=== PATIENT | male | born 1955 | race Caucasian/White ===

== ENCOUNTER → 2017-07-09 | Outpatient (CLI) | payer OTHER ==
--- NOTE | 2017-07-09 14:01 | DIAGNOSTIC IMAGING REPORT ---
RIGHT ANKLE 3 VIEWS HISTORY: Right ankle injury with pain. ANKLE SPRAIN COMPARISON: None. FINDINGS: Small nondisplaced acute fracture at the distal tip of the fibula. Additional well-corticated ossific densities at the lateral malleolus are consistent with old avulsion fractures. No dislocation. Diffuse soft tissue swelling. No radiopaque foreign bodies. IMPRESSION: Small nondisplaced acute fracture at the distal tip of the fibula. Electronically signed by: Carlos A Han M.D. 07/09/2017 2:00 PM Dictated Date/Time: 07/09/2017 1:59 PM
== END | disposition home or self-care (01) ==
LOC: C.RAD1850 13:40
PROVIDERS: ATTEND Student in an Organized Health Care Education/Training Program
DX: S93.401A Sprain of unspecified ligament of right ankle, initial encounter (principal); X58.XXXA Exposure to other specified factors, initial encounter

== ENCOUNTER 2024-07-08 09:46 | Inpatient (IN) ==
--- NOTE | 2024-07-08 10:17 | Emergency Department Note ---
Impression & Plan Bradycardia, Heart block, Leukocytosis, Elevated troponin, Dizziness ED Provider Note NAME: AVNI ALFONSO AGE: 68 SEX: M : 1955 ARRIVES VIA: Walk-In INFORMANT: [Patient] ED PROVIDER(S): [Reyes Garcia MD] CHIEF COMPLAINT: Bradycardia HISTORY OF PRESENT ILLNESS: The patient is a 68-year-old male who states that 2 days ago, he felt woozy and like he may faint. He has had the symptoms come and go since and then, this morning, had an episode where his heart rate was recorded in the 30s. He did not have chest pain, he was not short of breath. He has not had fever, chills, cough or cold. The patient states that he is not on any medications that would lower his heart rate. He does have a history of a bundle branch block that he had evaluated by cardiology but nothing was felt of concern and he has not seen cardiology since. PMHx/PSHx/Social Hx: See Below PHYSICAL EXAM: GENERAL: Patient is in no acute distress. HEENT: No acute trauma, normocephalic atraumatic, mucous membranes moist, no nasal congestion. NECK: No stridor, no adenopathy, no meningismus, trachea is midline. LUNGS: Clear to auscultation bilaterally, no wheeze, no rhonchi, breath sounds equal. HEART: Bradycardic and somewhat irregular rhythm. No murmurs. ABDOMEN: Soft, nontender, no peritonitis. EXTREMITIES: No cyanosis, full range of motion of all the joints without pain or difficulty. NEUROLOGIC: Oriented x 3, no acute motor or sensory deficits, no focal weakness. SKIN: No jaundice, no diaphoresis. DIFFERENTIAL DIAGNOSIS: Dysrhythmia, heart block, Lyme disease, electrolyte imbalance, AL, among others. EMERGENCY DEPARTMENT PROCEDURES: MEDICAL DECISION MAKING: There is a mild leukocytosis, this could be consistent with infection or the stress of his presentation. There is a normal hemoglobin and platelet count. Creatinine is elevated and above his typical baseline. There was no electrolyte abnormality in need of emergent correction. No concerning liver enzyme elevation. Patient appeared to be in a euthyroid state. Troponin was somewhat elevated consistent with potential cardiac injury versus mismatch from his bradycardia. Chest x-ray does not show pneumonia or CHF. Urinalysis does not show infection. COVID, influenza and RSV test were negative. Lyme disease testing was negative. On exam, the patient seemed to be fairly comfortable, he was not in distress, but, his heart rate was quite low in the 30s. He was in a third-degree heart block. I did call and speak with cardiology. The patient was seen by cardiology here in the ED. The patient was placed on a dopamine drip to see if this would help with the bradycardia. Given his findings, he is to be hospitalized for pacemaker placement. I did speak with the patient and case management, the on-call hospitalist was consulted. Prior/Outside records/notes reviewed: None ECG per my interpretation: Indication was bradycardia. The ECG shows what appears to be of third-degree heart block with a rate of 36. There is a right bundle branch block. There are inverted T waves seen in the anterior leads. There is no ST elevation. No PVCs. The QTc is 408. No old ECGs to use for comparison. Repeat ECG per my interpretation: Indication was bradycardia. The ECG shows what appears to be a sinus rhythm with a very short HI. The rate is 65. There is a left bundle branch block. There is no acute ST elevation, no PVCs. The QTc was 567. Compared to the earlier ECG, the rate has increased and the third- degree block is no longer present. Continuous Cardiac Monitoring per my interpretation: An order was placed for continuous cardiac monitoring. The monitor shows a rate of 35 with third-degree heart block. Imaging/x-ray results per my interpretation: Chest x-ray does not show CHF, pneumonia or significant cardiomegaly. Chronic Medical/Social conditions affecting care: Hypertension Care/Management discussed with: Cardiology-Dr. Sibley. Case management and the on-call hospitalist. Level of care consideration(s): After review of the information above and other included data: --I believe the patient requires escalation of care to admission Critical Care Note: I have personally spent 41 minutes of critical care time in the direct management of this patient. This includes bedside care, interpretation of diagnostic studies, and testing, discussion with consultants, patient, and family members, and other required patient management activities. This 41 minutes is in excess of all separately billable procedures. DISPOSITION: Admission Past Med/Surg History Problem List Dizziness (Acute) Elevated troponin (Acute) Leukocytosis (Acute) Heart block (Acute) Bradycardia (Acute) Systolic murmur Complete heart block Scrotal pain Renal cyst Renal mass Carotid bruit Chronic kidney disease Vitamin D deficiency HTN (hypertension) (Chronic) History of tonsillectomy (Acute) Anterior dislocation of left humerus (Acute) Anterior dislocation of left humerus (Acute) Fall (Acute) Fracture of head of left humerus (Acute) Multiple contusions (Acute) Medical History Stenosis of right carotid artery greater than 50% Weight disorder Testicle pain (04/15/23) Testicle pain Snoring Seborrheic keratosis Seasonal allergies Right shoulder pain (03/14/23) Right inguinal hernia (06/25/23) Right inguinal hernia Pulmonary artery hypertension Postural dizziness (04/01/23) Pain in the abdomen (06/25/23) Need for pneumococcal vaccination Medicare annual wellness visit, subsequent LVH (left ventricular hypertrophy) Iritis, secondary infectious Impaired fasting glucose Impacted cerumen of right ear (03/14/23) Hyponatremia Hyperlipidemia (06/25/23) Hyperlipidemia History of shingles History of retinal tear History of prior cigarette smoking History of gout History of COVID-19 (11/16/21) History of adenomatous polyp of colon (12/31/17) Hearing loss Hamstring tightness of both lower extremities Groin pain, chronic, right (05/08/23) Family history of colon cancer Elevated WBC count Elbow pain, right Dizziness (04/15/23) Dizziness Coronary artery calcification Claudication of right lower extremity Carotid artery stenosis BPPV (benign paroxysmal positional vertigo) (05/08/23) Body mass index [BMI] 26.0-26.9, adult (03/14/23) Body mass index [BMI] 26.0-26.9, adult (06/25/23) Body mass index [BMI] 25.0-25.9, adult (04/01/23) Bilateral inguinal hernia Benign paroxysmal vertigo, bilateral Back pain (06/25/23) Age-related hearing loss Abnormal CT of the abdomen (07/18/23) White coat syndrome with diagnosis of hypertension Left bundle branch block Gout Family History Father Kidney disease Hypertension Mother Diabetes Colorectal cancer Social History Smoking Status: Former smoker Age Started Using Tobacco: 15; Age Quit Using Tobacco: 24; Do You Dip or Chew Tobacco: No; Hx Alcohol Use: No Hx Substance Use: No Preferred Language: Croatian Communication Ability: Effective Visual Impairment: Limited Hearing Ability: Normal Entry Level Account Executive Required: No Beliefs That Will Affect Care: None marital status: Current Living Situation: Spouse current occupational status: retired current occupation: Former [employer] How many Children do You have: 4 Other Information That Helps Us Care for You: No Feels Safe at Home: Yes Safety Concerns: Feels Safe At This Time Diet: other and regular Diet Comment: intermittent fasting caffeine: Yes (pepsi x 1-2 daily) Dental Care, Regularly: Yes Physical Activity Frequency: 1-2 Times per Week Seatbelt Use: always Sunscreen Use: Yes Do you think of yourself as: straight/heterosexual Gender Identity: Male Assistive Devices: Glasses Allergies Allergies Allergy/AdvReac Type Severity Reaction Status Date / Time bee venom protein (honey bee) Allergy Intermediate Hives Unverified 07/08/24 11:07 shellfish derived Allergy Intermediate Facial Unverified 07/08/24 11:07 Swelling cat dander Allergy WATERY EYES Verified 07/08/24 11:07 Home Meds Home Medications Medication Instructions Recorded Confirmed allopurinol 300 mg tablet 300 mg PO DAILY 05/07/19 07/08/24 amlodipine 2.5 mg tablet 2.5 mg PO DAILY 05/07/19 07/08/24 irbesartan 300 mg tablet 300 mg PO DAILY 05/07/19 07/08/24 aspirin 81 mg tablet,delayed 81 mg PO DAILY 08/23/19 07/08/24 release (Adult Aspirin Regimen) chlorthalidone 25 mg tablet 25 mg PO Q OTHER DAY 08/23/19 07/08/24 rosuvastatin 20 mg tablet 20 mg PO DAILY 02/19/22 07/08/24 coenzyme Q10 100 mg capsule 100 mg PO DAILY 11/07/23 07/08/24 (CoQ-10) multivitamin 1 tab PO DAILY 07/08/24 07/08/24 Results & Data (ED) Vital Signs Vital Signs - 24 hr 07/08/24 09:49 07/08/24 10:00 07/08/24 10:02 Temperature 36.4 C L Temperature Source Temporal Artery Scan Pulse Rate 60 34 L Pulse Rate [Apical] Pulse Rate from SpO2 Sensor Respiratory Rate 14 Blood Pressure 217/81 H 231/87 H Blood Pressure [Left Arm] Blood Pressure Mean 126 176 Blood Pressure Mean [Left Arm] Pulse Oximetry 98 Oxygen Delivery Method Room Air Sepsis New/Unexplained Change in Mental Status No Sepsis Action Taken by Nursing No Action Required 07/08/24 10:02 07/08/24 10:02 07/08/24 10:02 Temperature Temperature Source Pulse Rate Pulse Rate [Apical] Pulse Rate from SpO2 Sensor Respiratory Rate Blood Pressure 231/87 H 231/87 H 231/87 H Blood Pressure [Left Arm] Blood Pressure Mean 176 176 176 Blood Pressure Mean [Left Arm] Pulse Oximetry Oxygen Delivery Method Sepsis New/Unexplained Change in Mental Status Sepsis Action Taken by Nursing 07/08/24 10:02 07/08/24 10:03 07/08/24 10:04 Temperature Temperature Source Pulse Rate 37 L 63 Pulse Rate [Apical] Pulse Rate from SpO2 Sensor Respiratory Rate 15 Blood Pressure 231/87 H Blood Pressure [Left Arm] Blood Pressure Mean 176 Blood Pressure Mean [Left Arm] Pulse Oximetry Oxygen Delivery Method Sepsis New/Unexplained Change in Mental Status Sepsis Action Taken by Nursing 07/08/24 10:08 07/08/24 10:08 07/08/24 10:08 Temperature Temperature Source Pulse Rate 35 L Pulse Rate [Apical] 36 L Pulse Rate from SpO2 Sensor Respiratory Rate 16 18 Blood Pressure Blood Pressure [Left Arm] 231/87 H Blood Pressure Mean Blood Pressure Mean [Left Arm] 135 Pulse Oximetry 99 99 Oxygen Delivery Method Room Air Sepsis New/Unexplained Change in Mental Status Sepsis Action Taken by Nursing 07/08/24 10:09 07/08/24 10:11 07/08/24 10:16 Temperature Temperature Source Pulse Rate 35 L Pulse Rate [Apical] Pulse Rate from SpO2 Sensor 36 L Respiratory Rate 14 Blood Pressure 196/74 H 200/58 H Blood Pressure [Left Arm] Blood Pressure Mean 143 150 Blood Pressure Mean [Left Arm] Pulse Oximetry 99 Oxygen Delivery Method Sepsis New/Unexplained Change in Mental Status Sepsis Action Taken by Nursing 07/08/24 10:16 07/08/24 10:16 07/08/24 10:16 Temperature Temperature Source Pulse Rate Pulse Rate [Apical] Pulse Rate from SpO2 Sensor Respiratory Rate Blood Pressure 200/58 H 200/58 H 200/58 H Blood Pressure [Left Arm] Blood Pressure Mean 150 150 150 Blood Pressure Mean [Left Arm] Pulse Oximetry Oxygen Delivery Method Sepsis New/Unexplained Change in Mental Status Sepsis Action Taken by Nursing 07/08/24 10:21 07/08/24 10:30 07/08/24 10:30 Temperature Temperature Source Pulse Rate 35 L Pulse Rate [Apical] Pulse Rate from SpO2 Sensor 35 L Respiratory Rate 14 Blood Pressure 194/73 H 194/73 H Blood Pressure [Left Arm] Blood Pressure Mean 119 119 Blood Pressure Mean [Left Arm] Pulse Oximetry 99 Oxygen Delivery Method Sepsis New/Unexplained Change in Mental Status Sepsis Action Taken by Nursing 07/08/24 10:30 07/08/24 10:30 07/08/24 10:30 Temperature Temperature Source Pulse Rate Pulse Rate [Apical] Pulse Rate from SpO2 Sensor Respiratory Rate Blood Pressure 194/73 H 194/73 H 194/73 H Blood Pressure [Left Arm] Blood Pressure Mean 119 119 119 Blood Pressure Mean [Left Arm] Pulse Oximetry Oxygen Delivery Method Sepsis New/Unexplained Change in Mental Status Sepsis Action Taken by Nursing 07/08/24 10:33 07/08/24 10:42 07/08/24 10:46 Temperature Temperature Source Pulse Rate 35 L 35 L Pulse Rate [Apical] Pulse Rate from SpO2 Sensor 35 L 35 L Respiratory Rate 17 14 Blood Pressure 209/58 H Blood Pressure [Left Arm] Blood Pressure Mean 124 Blood Pressure Mean [Left Arm] Pulse Oximetry 99 98 Oxygen Delivery Method Sepsis New/Unexplained Change in Mental Status Sepsis Action Taken by Nursing 07/08/24 10:46 07/08/24 10:46 07/08/24 10:46 Temperature Temperature Source Pulse Rate Pulse Rate [Apical] Pulse Rate from SpO2 Sensor Respiratory Rate Blood Pressure 209/58 H 209/58 H 209/58 H Blood Pressure [Left Arm] Blood Pressure Mean 124 124 124 Blood Pressure Mean [Left Arm] Pulse Oximetry Oxygen Delivery Method Sepsis New/Unexplained Change in Mental Status Sepsis Action Taken by Alf Medications Current Medication List: was personally reviewed by me Laboratory Data Attestation: I reviewed the patient's lab results. 07/08/24 10:00 07/08/24 10:00 Lab Results 07/08/24 07/08/24 07/08/24 Range/Units 10:00 10:06 10:14 WBC 13.17 H (4.8-10.8) K/ul RBC 5.93 (4.70-6.10) M/uL Hgb 17.3 (14.0-18.0) g/dl POC Hgb 17.7 (14.0-18.0) g/dl Hct 51.0 (42.0-52.0) % POC Hct 52 (42-52) % MCV 86.0 (80.0-100.0) fL MCH 29.2 (25.0-34.0) pg MCHC 33.9 (32.0-36.0) g/dL RDW Std Deviation 43.2 (36.4-46.3) fL RDW Coeff of [place] 14.0 (11.5-14.5) % Plt Count 275 (130-400) K/uL MPV 10.7 (9.4-12.4) fL Immature Gran % (Auto) 0.6 % Neut % (Auto) 75.0 % Lymph % (Auto) 15.3 % Sharp % (Auto) 6.8 % Eos % (Auto) 1.4 % Baso % (Auto) 0.9 % Neut # (Auto) 9.88 H (1.40-6.50) K/uL Lymph # (Auto) 2.01 (1.20-3.40) K/uL Sharp # (Auto) 0.89 H (0.11-0.59) K/uL Eos # (Auto) 0.19 (0.00-0.50) K/uL Baso # (Auto) 0.12 (0.00-0.20) K/uL Immature Gran # (Auto) 0.08 (0.01-0.20) K/uL POC Sodium 139 (135-144) mmol/L Sodium 138 (136-145) mmol/L POC Potassium 4.5 (3.3-5.0) mmol/L Potassium 4.0 (3.5-5.1) mmol/L POC Chloride 102 (101-112) mmol/L Chloride 102 (98-107) mmol/L Carbon Dioxide 30 (21-32) mmol/L POC Total CO2 26 (24-31) mmol/L Anion Gap 6 (3-11) POC Anion Gap 16.0 (16-25) mmol/L POC BUN 35 H (7-18) mg/dl BUN 30 H (6-23) mg/dl Creatinine 2.22 H (0.6-1.4) mg/dl POC Creatinine 2.6 H (0.6-1.3) mg/dl Est Cr Clr Drug Dosing 30.4 ml/min eGFR 31.29 BUN/Creatinine Ratio 13.5 (10-20) Glucose 152 H (70-99(Fasting)) mg/dl POC Glucose (other) 149 H (70-99) mg/dl Calcium 10.7 H (8.6-10.3) mg/dl POC Ioniz Calcium Piyush 1.26 (1.12-1.32) mmol/l Magnesium 2.3 (1.7-2.4) mg/dl Total Bilirubin 1.2 H (0.2-1.0) mg/dl AST 23 (13-39) U/L ALT 30 (7-52) U/L Alkaline Phosphatase 74 (34-104) U/L Troponin I High Sens 31.0 H (0-20) pg/ml Total Protein 7.7 (6.0-8.3) gm/dl Albumin 4.6 (3.4-5.0) gm/dl Globulin 3.1 (2.5-4.0) gm/dl Albumin/Globulin Ratio 1.5 (0.9-2) TSH 1.463 (0.300-4.500) uIu/ml Lyme Disease Screen Negative (Negative) SARS-CoV-2 (PCR) NEGATIVE (Negative) Influenza Type A (PCR) Negative (Neg) Influenza Type B (PCR) Negative (Neg) RSV (RT-PCR) Negative (Neg) Administered Medications Discontinued Medications Atropine Sulfate (Atropine Sulfate 0.1 Mg/Ml 10ml Syr) Confirm Administered Dose 1 mg IV .Mobvoi-Inetec ONE Stop: 07/08/24 10:37 Last Admin: 07/08/24 14:01 Dose: Not Given Documented By: MONA Bupivacaine HCl (Bupivacaine 0.25% Pf 30 Ml Vial) Confirm Administered Dose 30 ml .ROUTE .Mobvoi-MED ONE Stop: 07/08/24 11:52 Last Admin: 07/08/24 13:11 Dose: 30 ml Documented By: VALENTINA Cefazolin Sodium (Cefazolin 330 Mg/Ml 1 Gm Vial) Confirm Administered Dose 990 mg .ROUTE .STVoddler-MED ONE Stop: 07/08/24 12:33 Last Admin: 07/08/24 13:13 Dose: 1,000 mg Documented By: DAVID Fentanyl Citrate (Fentanyl Citrate Pf 100 Mcg/2 Ml Vial) Confirm Administered Dose 100 mcg .ROUTE .STK-MED ONE Stop: 07/08/24 12:32 Last Increment: 07/08/24 13:12 Dose: 50 mcg Documented By: DAVID Dopamine HCl/Dextrose (Dopamine / D5w) 400 mg in 250 mls @ 20.396 mls/hr IV .[id number] KATE; Protocol Stop: 08/07/24 10:44 Last Titration: 07/08/24 14:02 Dose: Infused Documented By: Titration: 07/08/24 13:33 Dose: 0 mcg/kg/min, 0 mls/hr Documented By: Titration: 07/08/24 13:30 Dose: 2 mcg/kg/min, 5.8 mls/hr Documented By: Titration: 07/08/24 13:19 Dose: 3 mcg/kg/min, 8.7 mls/hr Documented By: Titration: 07/08/24 13:13 Dose: 5 mcg/kg/min, 14.6 mls/hr Documented By: Admin: 07/08/24 10:40 Dose: 9 mcg/kg/min, 26.2 mls/hr Documented By: SANDRA Lidocaine HCl (Lidocaine 1% Local 20 Ml Vial) Confirm Administered Dose 20 ml .ROUTE .STK-MED ONE Stop: 07/08/24 11:52 Last Admin: 07/08/24 13:12 Dose: 20 ml Documented By: VALENTINA Midazolam HCl (Midazolam Hcl 5 Mg/Ml 1 Ml Vial) Confirm Administered Dose 5 mg .ROUTE .STK-MED ONE Stop: 07/08/24 12:32 Last Increment: 07/08/24 13:13 Dose: 2 mg Documented By: DAVID Miscellaneous (Stat Iv Infusion Titration Per Protocol) 1 each N/A NOW STA Stop: 07/08/24 10:38 Last Admin: 07/08/24 10:53 Dose: 1 each Documented By: SANDRA Sterile Water (Water, Sterile For Inj 10 Ml Vial) Confirm Administered Dose 10 ml .ROUTE .STK-MED ONE Stop: 07/08/24 11:52 Last Admin: 07/08/24 13:12 Dose: 10 ml Documented By: VALENTINA Vancomycin HCl (Vancomycin Hcl 1000mg/20ml Vial) Confirm Administered Dose 50 mg .ROUTE .K-MED ONE Stop: 07/08/24 11:52 Last Admin: 07/08/24 13:12 Dose: 50 mg Documented By: VALENTINA Imaging Data Radiologist's Impression: Chest X-Ray 07/08/24 09:57 XR chest 1V portable CLINICAL HISTORY: weakness COMPARISON STUDY: None FINDINGS: Single view portable chest demonstrates no acute cardiopulmonary process. There is no infiltrate or effusion. No atelectasis or pneumothorax. The heart and pulmonary vascularity are unremarkable. IMPRESSION: Negative portable chest ACT 112: Negative or not required by law. Electronically signed by: Melita Hair M.D. 07/08/2024 10:42 AM Discharge Plan Visit Data Chief Complaint: Bradycardia Stated Complaint: BRADYCARDIA ED Provider: Reyes Garcia Discharge Problem: Bradycardia, Heart block, Leukocytosis, Elevated troponin, Dizziness Patient Disposition: Admitted As Inpatient Condition: Serious Discharge Instructions Interventions: ED Discharge Assessment Last Done: 07/08/24 11:56 Discharge Problem: Leukocytosis Qualifiers: Leukocytosis type: unspecified Qualified Code(s): D72.829 - Elevated white blood cell count, unspecified
[2024-07-08 10:26] LABS: iSTAT Creatinine 2.6 mg/dl (0.6-1.3); iSTAT Hemoglobin 17.7 g/dl (14.0-18.0); iSTAT Ionized Calcium 1.26 mmol/l (1.12-1.32); iSTAT Potassium 4.5 mmol/L (3.3-5.0)
[2024-07-08 10:28] LABS: Basophils # (auto) 0.12 K/uL (0.00-0.20); Basophils % (auto) 0.9 %; Eosinophils # (auto) 0.19 K/uL (0.00-0.50); Eosinophils % (auto) 1.4 %; Hemoglobin 17.3 g/dl (14.0-18.0); Immature Granulocytes # (auto) 0.08 K/uL (0.01-0.20); Immature Granulocytes % (auto) 0.6 %; Lymphocytes # (auto) 2.01 K/uL (1.20-3.40); Lymphocytes % (auto) 15.3 %; Mean Corpuscular Hemoglobin 29.2 pg (25.0-34.0); Mean Corpuscular Hgb Conc 33.9 g/dL (32.0-36.0); Mean Platelet Volume 10.7 fL (9.4-12.4); Monocytes # (auto) 0.89 K/uL (0.11-0.59); Monocytes % (auto) 6.8 %; Neutrophils # (auto) 9.88 K/uL (1.40-6.50); Platelet Count 275 K/uL (130-400); RDW Standard Deviation 43.2 fL (36.4-46.3); Red Blood Count 5.93 M/uL (4.70-6.10); White Blood Count 13.17 K/ul (4.8-10.8)
[2024-07-08] MEDS: DOPamine / D5W 400 MG/250 ML BAG IV SCH (10:40)
--- NOTE | 2024-07-08 10:44 | XRay Report ---
XR chest 1V portable CLINICAL HISTORY: weakness COMPARISON STUDY: None FINDINGS: Single view portable chest demonstrates no acute cardiopulmonary process. There is no infil trate or effusion. No atelectasis or pneumothorax. The heart and pulmonary vascularity are unremarkab le. IMPRESSION: Negative portable chest ACT 112: Negative or not required by law. Electronically signed by: Melita Hair M.D. 07/08/2024 10:42 AM
[2024-07-08 10:50] LABS: Albumin Globulin Ratio 1.5 (0.9-2); Albumin Level 4.6 gm/dl (3.4-5.0); BUN Creatinine Ratio 13.5 (10-20); Bilirubin,Total 1.2 mg/dl (0.2-1.0); Calcium 10.7 mg/dl (8.6-10.3); Creatinine Clr Calc Pharmacy 30.4 ml/min; Globulin 3.1 gm/dl (2.5-4.0); Magnesium 2.3 mg/dl (1.7-2.4); Total Protein 7.7 gm/dl (6.0-8.3)
[2024-07-08] MEDS: STAT IV Infusion **Titration per Protocol STA (10:53)
[2024-07-08 11:06] LABS: Thyroid Stimulating Hormone 1.463 uIu/ml (0.300-4.500)
[2024-07-08 11:08] LABS: Influenza A virus by PCR Negative (Neg); Influenza B virus by PCR Negative (Neg); RSV by PCR Negative (Neg); SARS CoV2 RNA(COVID-19) Ceph NEGATIVE (Negative)
--- NOTE | 2024-07-08 11:40 | History & Physical Report ---
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 Patient will then be admitted to PCU and monitored overnight. If heart rate is stable, may consider discharge in AM (2) Renal mass: Plan: Renal ultrasound from 07/29/2023 showed 1.9 cm right upper pole renal cyst which corresponds to the lesion on CT of July 09, 2023. This is benign. (3) Chronic kidney disease: Plan: renal function appears stable (4) HTN (hypertension): Plan: holding bp meds until partient gets pacemaker, leora resume his medications in the AM. History of Present Illness Chief Complaint: low heart rate Primary Care Provider: Daja Harmon DO 75-year-old male comes into the hospital with symptoms of lightheadedness started on Friday. Patient follows up with Dr. Rivera as an outpatient for his bradycardia. He has been asymptomatic until he has had symptoms this past friday. Patient realized his heart rate was low when he checked his vitals before going to bed. He decided to sleep on it aand not come to the hospital. The next morning as their was no improvement he came to the hospital. Patient came to ED with heart rates in the 30s he was evaluated by cardiology and was recommended a pacemaker. Patient will be admitted directly to the Electrical Helper and then be transferred to PCU. Allergies Allergy/AdvReac Type Severity Reaction Status Date / Time bee venom protein (honey bee) Allergy Intermediate Hives Unverified 07/08/24 11:07 shellfish derived Allergy Intermediate Facial Unverified 07/08/24 11:07 Swelling cat dander Allergy WATERY EYES Verified 07/08/24 11:07 Home Medications Medication Instructions Recorded Confirmed Type allopurinol 300 mg tablet 300 mg PO DAILY 05/07/19 07/08/24 History amlodipine 2.5 mg tablet 2.5 mg PO DAILY 05/07/19 07/08/24 History irbesartan 300 mg tablet 300 mg PO DAILY 05/07/19 07/08/24 History aspirin 81 mg tablet,delayed 81 mg PO DAILY 08/23/19 07/08/24 History release (Adult Aspirin Regimen) chlorthalidone 25 mg tablet 25 mg PO Q OTHER DAY 08/23/19 07/08/24 History rosuvastatin 20 mg tablet 20 mg PO DAILY 02/19/22 07/08/24 History coenzyme Q10 100 mg capsule 100 mg PO DAILY 11/07/23 07/08/24 History (CoQ-10) multivitamin 1 tab PO DAILY 07/08/24 07/08/24 History Past Med/Surg History Problem List Dizziness (Acute) Elevated troponin (Acute) Leukocytosis (Acute) Heart block (Acute) Bradycardia (Acute) Systolic murmur Complete heart block Scrotal pain Renal cyst Renal mass Carotid bruit Chronic kidney disease Vitamin D deficiency HTN (hypertension) (Chronic) History of tonsillectomy (Acute) Anterior dislocation of left humerus (Acute) Anterior dislocation of left humerus (Acute) Fall (Acute) Fracture of head of left humerus (Acute) Multiple contusions (Acute) Medical History Stenosis of right carotid artery greater than 50% Weight disorder Testicle pain (04/15/23) Testicle pain Snoring Seborrheic keratosis Seasonal allergies Right shoulder pain (03/14/23) Right inguinal hernia (06/25/23) Right inguinal hernia Pulmonary artery hypertension Postural dizziness (04/01/23) Pain in the abdomen (06/25/23) Need for pneumococcal vaccination Medicare annual wellness visit, subsequent LVH (left ventricular hypertrophy) Iritis, secondary infectious Impaired fasting glucose Impacted cerumen of right ear (03/14/23) Hyponatremia Hyperlipidemia (06/25/23) Hyperlipidemia History of shingles History of retinal tear History of prior cigarette smoking History of gout History of COVID-19 (11/16/21) History of adenomatous polyp of colon (12/31/17) Hearing loss Hamstring tightness of both lower extremities Groin pain, chronic, right (05/08/23) Family history of colon cancer Elevated WBC count Elbow pain, right Dizziness (04/15/23) Dizziness Coronary artery calcification Claudication of right lower extremity Carotid artery stenosis BPPV (benign paroxysmal positional vertigo) (05/08/23) Body mass index [BMI] 26.0-26.9, adult (03/14/23) Body mass index [BMI] 26.0-26.9, adult (06/25/23) Body mass index [BMI] 25.0-25.9, adult (04/01/23) Bilateral inguinal hernia Benign paroxysmal vertigo, bilateral Back pain (06/25/23) Age-related hearing loss Abnormal CT of the abdomen (07/18/23) White coat syndrome with diagnosis of hypertension Left bundle branch block Gout Family History Father Kidney disease Hypertension Mother Diabetes Colorectal cancer Social History Smoking Status: Former smoker Age Started Using Tobacco: 15; Age Quit Using Tobacco: 24; Do You Dip or Chew Tobacco: No; Hx Alcohol Use: No Hx Substance Use: No Preferred Language: Czech Communication Ability: Effective Visual Impairment: Limited Hearing Ability: Normal Loan Operations Specialist Required: No Beliefs That Will Affect Care: None marital status: Current Living Situation: Spouse current occupational status: retired current occupation: Former [employer] How many Children do You have: 4 Other Information That Helps Us Care for You: No Feels Safe at Home: Yes Safety Concerns: Feels Safe At This Time Diet: other and regular Diet Comment: intermittent fasting caffeine: Yes (pepsi x 1-2 daily) Dental Care, Regularly: Yes Physical Activity Frequency: 1-2 Times per Week Seatbelt Use: always Sunscreen Use: Yes Do you think of yourself as: straight/heterosexual Gender Identity: Male Assistive Devices: Glasses Review of Systems Constitutional: no fever and no body aches Eyes: no blind spots Ear, Nose, Mouth, Throat: no ear pain and no tinnitus Respiratory: no cough Cardiovascular: no chest pain and no radiating jaw, neck or arm pain Gastrointestinal: no abdominal pain Musculoskeletal: no back pain Integumentary: no acne Neurologic: no gait abnormality and no localized weakness Psychiatric: no behavioral changes Endocrine: no fatigue Hematologic / Lymphatic: no easy bleeding Allergy / Immunological: no GI upset with certain foods Physical Exam Constitutional: WD/WN, vitals as above Eyes: PERRL, conjunctivae normal, anicteric sclerae ENMT: external ear and nose normal, oropharynx normal Neck: trachea midline, no thyromegaly Respiratory: normal respiratory effort, lungs clear to auscultation Cardiovascular: Rate/Rhythm: + bradycardic Heart Sounds: normal S1 and normal S2 Gastrointestinal (Abdomen): normal bowel sounds, soft, nontender, no hepatosplenomegaly Musculoskeletal: no cyanosis or clubbing, extremities motor strength 5/5 Neurologic: PERRL, EOMI, accommodation nl, no face palsy, no dysarthria Psychiatric: A+Ox3, euthymic affect Lymphatic: no cervical or axillary lymphadenopathy Results & Data Results & Data Vital Signs (Past 12 Hours) Vital Signs Temp Pulse Pulse Resp BP BP Pulse Ox 07/08/24 11:36 50 L 14 97 07/08/24 11:31 146/43 H 07/08/24 11:31 146/43 H 07/08/24 11:24 154/43 H 07/08/24 11:21 35 L 12 97 07/08/24 11:15 34 L 13 96 07/08/24 11:06 33 L 14 96 07/08/24 11:05 160/52 H 07/08/24 11:05 160/52 H 07/08/24 11:05 160/52 H 07/08/24 11:05 160/52 H 07/08/24 10:51 35 L 16 96 07/08/24 10:46 209/58 H 07/08/24 10:46 209/58 H 07/08/24 10:46 209/58 H 07/08/24 10:46 209/58 H 07/08/24 10:42 35 L 14 98 07/08/24 10:33 35 L 17 99 07/08/24 10:30 194/73 H 07/08/24 10:30 194/73 H 07/08/24 10:30 194/73 H 07/08/24 10:30 194/73 H 07/08/24 10:30 194/73 H 07/08/24 10:21 35 L 14 99 07/08/24 10:16 200/58 H 07/08/24 10:16 200/58 H 07/08/24 10:16 200/58 H 07/08/24 10:16 200/58 H 07/08/24 10:11 196/74 H 07/08/24 10:09 35 L 14 99 07/08/24 10:08 35 L 18 99 07/08/24 10:08 36 L 16 231/87 H 99 07/08/24 10:08 07/08/24 10:04 63 07/08/24 10:03 37 L 15 04/03/25 10:02 231/87 H 07/08/24 10:02 231/87 H 07/08/24 10:02 231/87 H 07/08/24 10:02 231/87 H 07/08/24 10:02 231/87 H 07/08/24 10:00 34 L 07/08/24 09:49 36.4 C L 60 14 217/81 H 98 O2 Del Method 07/08/24 11:36 07/08/24 11:31 07/08/24 11:31 07/08/24 11:24 07/08/24 11:21 07/08/24 11:15 07/08/24 11:06 07/08/24 11:05 07/08/24 11:05 07/08/24 11:05 07/08/24 11:05 07/08/24 10:51 07/08/24 10:46 07/08/24 10:46 07/08/24 10:46 07/08/24 10:46 07/08/24 10:42 07/08/24 10:33 07/08/24 10:30 07/08/24 10:30 07/08/24 10:30 07/08/24 10:30 07/08/24 10:30 07/08/24 10:21 07/08/24 10:16 07/08/24 10:16 07/08/24 10:16 07/08/24 10:16 07/08/24 10:11 07/08/24 10:09 07/08/24 10:08 07/08/24 10:08 07/08/24 10:08 Room Air 07/08/24 10:04 07/08/24 10:03 07/08/24 10:02 07/08/24 10:02 07/08/24 10:02 07/08/24 10:02 07/08/24 10:02 07/08/24 10:00 07/08/24 09:49 Room Air PG Care Time/CCT Total # of Minutes Spent Total Time Spent with Patient: Total time spent is greater than 50% in coordination of care (as documented) at patient's floor/unit and/or counseling patient: Coding Level of Care Code 35697 INT INP/OBS CARE 3/75MIN Diagnoses Complete heart block I44.2 Renal mass N28.89 Stage 3b chronic kidney disease N18.32 Chronic kidney disease stage: stage 3 (moderate) Chronic kidney disease stage 3 subtype: stage 3b (GFR 30-44) Primary hypertension I10 Hypertension type: primary hypertension (3) Chronic kidney disease Chronic kidney disease stage: stage 3 (moderate) Chronic kidney disease stage 3 subtype: stage 3b (GFR 30-44) Qualified Code(s): N18.32 - Chronic kidney disease, stage 3b (4) HTN (hypertension) Hypertension type: primary hypertension Qualified Code(s): I10 - Essential (primary) hypertension
[2024-07-08 11:54] LABS: Appearance Urine Cloudy (Clear); Bacteria Urine Automated None Seen (None Seen); Bilirubin Urine Negative (Negative); Blood Urine Trace (Negative); Cast Urine Automated 0-2 /lpf (0-2); Color Urine Yellow; Epithelial Cell Urine Auto 0-2 /hpf (0-2); Glucose Urine UA Negative (Negative); Ketones Urine Negative (Negative); Leukocyte Esterase Urine Negative (Negative); Nitrite Urine Negative (Negative); Protein Urine 1+ (Negative); RBC Urine Automated 0-2 /hpf (0-2); Specific Gravity Urine 1.007 (1.000-1.030); Urobilinogen Urine Negative (Negative); WBC Urine Automated 0-5 /hpf (0-5); pH Urine 7.5 (4.5-7.5)
--- NOTE | 2024-07-08 12:16 | Pre Anesthesia Assessment ---
Date of Service July 08, 2024 Pre Sedation Assessment Vital Signs Temp Pulse Pulse Resp BP BP Pulse Ox 07/08/24 11:36 50 L 14 97 07/08/24 11:31 146/43 H 07/08/24 11:31 146/43 H 07/08/24 11:24 154/43 H 07/08/24 11:21 35 L 12 97 07/08/24 11:15 34 L 13 96 07/08/24 11:06 33 L 14 96 07/08/24 11:05 160/52 H 07/08/24 11:05 160/52 H 07/08/24 11:05 160/52 H 07/08/24 11:05 160/52 H 07/08/24 10:51 35 L 16 96 07/08/24 10:46 209/58 H 07/08/24 10:46 209/58 H 07/08/24 10:46 209/58 H 07/08/24 10:46 209/58 H 07/08/24 10:42 35 L 14 98 07/08/24 10:33 35 L 17 99 07/08/24 10:30 194/73 H 07/08/24 10:30 194/73 H 07/08/24 10:30 194/73 H 07/08/24 10:30 194/73 H 07/08/24 10:30 194/73 H 07/08/24 10:21 35 L 14 99 07/08/24 10:16 200/58 H 07/08/24 10:16 200/58 H 07/08/24 10:16 200/58 H 07/08/24 10:16 200/58 H 07/08/24 10:11 196/74 H 07/08/24 10:09 35 L 14 99 07/08/24 10:08 35 L 18 99 07/08/24 10:08 36 L 16 231/87 H 99 07/08/24 10:08 07/08/24 10:04 63 07/08/24 10:03 37 L 15 07/08/24 10:02 231/87 H 07/08/24 10:02 231/87 H 07/08/24 10:02 231/87 H 07/08/24 10:02 231/87 H 07/08/24 10:02 231/87 H 07/08/24 10:00 34 L 04/03/25 09:49 36.4 C L 60 14 217/81 H 98 O2 Del Method 07/08/24 11:36 07/08/24 11:31 07/08/24 11:31 07/08/24 11:24 07/08/24 11:21 07/08/24 11:15 07/08/24 11:06 07/08/24 11:05 07/08/24 11:05 07/08/24 11:05 07/08/24 11:05 07/08/24 10:51 07/08/24 10:46 07/08/24 10:46 07/08/24 10:46 07/08/24 10:46 07/08/24 10:42 07/08/24 10:33 07/08/24 10:30 07/08/24 10:30 07/08/24 10:30 07/08/24 10:30 07/08/24 10:30 07/08/24 10:21 07/08/24 10:16 07/08/24 10:16 07/08/24 10:16 07/08/24 10:16 07/08/24 10:11 07/08/24 10:09 07/08/24 10:08 07/08/24 10:08 07/08/24 10:08 Room Air 07/08/24 10:04 07/08/24 10:03 07/08/24 10:02 07/08/24 10:02 07/08/24 10:02 07/08/24 10:02 07/08/24 10:02 07/08/24 10:00 07/08/24 09:49 Room Air Cardiovascular + bradycardic Respiratory + respiratory effort normal Pre-Sedation Airway Assessment Smoking Status: Former smoker Hx Sleep Apnea: No Hx Difficult Intubation: No Short, Thick Neck: No Thyromental Distance: > or= 3.5 Finger Breadths Oral Cavity: + WNL Mallampati Class: III ASA: ASA3 Procedure Planning Contraindications for Sedation: none Current Medications Reviewed: Yes Notes The planned sedation has been discussed with the patient. Informed Consent was obtained. I have identified the patient, determined the appropriateness of sedation and have assessed the patient immediately prior to the procedure. All medicine(s) and interventions are by my order.
[2024-07-08] MEDS: BUPIVACAINE 0.25% PF 30 ML VIAL ONE (13:11)
[2024-07-08] MEDS: WATER, STERILE FOR INJ 10 ML VIAL ONE (13:12)
[2024-07-08] MEDS: VANCOMYCIN HCL 1000MG/20ML VIAL ONE (13:12)
[2024-07-08] MEDS: fentaNYL citrate PF 100 MCG/2 ML VIAL ONE (13:12)
[2024-07-08] MEDS: LIDOCAINE 1% LOCAL 20 ML VIAL ONE (13:12)
[2024-07-08] MEDS: MIDAZOLAM HCL 5 MG/ML 1 ML VIAL ONE (13:13)
[2024-07-08] MEDS: ceFAZolin 330 MG/ML 1 GM VIAL ONE (13:13)
[2024-07-08] MEDS ORDERED: oxyCODONE HCL IR 5 MG TAB (IMMEDIATE RELEASE) PO PRN (13:34)
[2024-07-08] MEDS ORDERED: ACETAMINOPHEN 325 MG TAB PO PRN (13:34)
--- NOTE | 2024-07-08 13:34 | Post Anesthesia Assessment ---
Date of Service July 08, 2024 Post Sedation Assessment Vital Signs Temp Pulse Pulse Resp BP BP Pulse Ox 07/08/24 11:36 50 L 14 97 07/08/24 11:31 146/43 H 07/08/24 11:31 146/43 H 07/08/24 11:24 154/43 H 07/08/24 11:21 35 L 12 97 07/08/24 11:15 34 L 13 96 07/08/24 11:06 33 L 14 96 07/08/24 11:05 160/52 H 07/08/24 11:05 160/52 H 07/08/24 11:05 160/52 H 07/08/24 11:05 160/52 H 07/08/24 10:51 35 L 16 96 07/08/24 10:46 209/58 H 07/08/24 10:46 209/58 H 07/08/24 10:46 209/58 H 07/08/24 10:46 209/58 H 07/08/24 10:42 35 L 14 98 07/08/24 10:33 35 L 17 99 07/08/24 10:30 194/73 H 07/08/24 10:30 194/73 H 07/08/24 10:30 194/73 H 07/08/24 10:30 194/73 H 07/08/24 10:30 194/73 H 07/08/24 10:21 35 L 14 99 07/08/24 10:16 200/58 H 07/08/24 10:16 200/58 H 07/08/24 10:16 200/58 H 07/08/24 10:16 200/58 H 07/08/24 10:11 196/74 H 07/08/24 10:09 35 L 14 99 07/08/24 10:08 35 L 18 99 07/08/24 10:08 36 L 16 231/87 H 99 07/08/24 10:08 07/08/24 10:04 63 07/08/24 10:03 37 L 15 07/08/24 10:02 231/87 H 07/08/24 10:02 231/87 H 07/08/24 10:02 231/87 H 07/08/24 10:02 231/87 H 07/08/24 10:02 231/87 H 07/08/24 10:00 34 L 04/03/25 09:49 36.4 C L 60 14 217/81 H 98 O2 Del Method 07/08/24 11:36 07/08/24 11:31 07/08/24 11:31 07/08/24 11:24 07/08/24 11:21 07/08/24 11:15 07/08/24 11:06 07/08/24 11:05 07/08/24 11:05 07/08/24 11:05 07/08/24 11:05 07/08/24 10:51 07/08/24 10:46 07/08/24 10:46 07/08/24 10:46 07/08/24 10:46 07/08/24 10:42 07/08/24 10:33 07/08/24 10:30 07/08/24 10:30 07/08/24 10:30 07/08/24 10:30 07/08/24 10:30 07/08/24 10:21 07/08/24 10:16 07/08/24 10:16 07/08/24 10:16 07/08/24 10:16 07/08/24 10:11 07/08/24 10:09 07/08/24 10:08 07/08/24 10:08 07/08/24 10:08 Room Air 07/08/24 10:04 07/08/24 10:03 07/08/24 10:02 07/08/24 10:02 07/08/24 10:02 07/08/24 10:02 07/08/24 10:02 07/08/24 10:00 07/08/24 09:49 Room Air Recovery Score Activity: Moves 4 extremities Respiration: Deep Breath/Cough Circulation: +/-20-49% PreAnes Value Consciousness: Fully Awake Oxygen Saturation: > 92% On Room Air Discharge Sedation Level of Care: Fast Track Phase II Post Sedation Plan On clinical assessment, the patient appears to have tolerated the sedation without complications. Patient is recovering as anticipated. Patient will continue to be monitored by nursing and may be discharged when sedation discharge criteria are met per below protocol. Upon Completions of procedure up to 15 minutes continue every 5 minute vital signs and the P.A.R. score; then discharge to a Phase I or Fast Track to Phase II per the following guidelines: * Discharge Patient to appropriate Phase II area if PAR is 8 or greater or return to pre- procedure baseline. The post - procedure orders will be as directed. * If PAR score is less than 8 or not return to pre-procedure baseline then patient will follow Phase I monitoring till PAR is reached for Phase II. The Phase I may be done in procedure room or may call to secure a Phase I area. * If naloxone or flumazenil are used for reversal, hold in Phase I for continued monitoring from when last reversal dose was given for a minimum of 60 minutes or longer pending the nurse and/or physician discretion of patient condition before discharge to Phase II. Please call the Sedation Physician to re-evaluate and complete post-note for discharge to Phase II area. Do NOT discharge from procedure sedation or Phase 1 until post- sedation evaluation note is complete by procedure /sedation MD Sedation Discharge Instructions to be given to the patient at discharge to home.
--- NOTE | 2024-07-08 13:34 | Electrophysiology Report ---
Date of Service July 08, 2024 Electrophysiology Procedure Electrophysiology Procedure Report Procedure performed: Implantation of dual-chamber permanent pacemaker with left bundle pacing lead Staff center maker hand: Jace Hendrix MD Indication: The patient 68-year-old gentleman who presented to the hospital with symptoms of dizziness and bradycardia. He discovered to have complete heart block. He is felt to be a good candidate for a pacemaker due to symptomatic nonreversible AV node dysfunction. Dual-chamber device was selected as he is currently in sinus rhythm and wished to maintain AV synchrony. Procedure in detail: The patient was informed of the risks benefits and alternatives to the intended procedure and she wished to proceed. He was taken to the electrophysiology suite in a fasting state. A preoperative antibiotic had been administered. The patient was monitored electrocardiographically throughout today's procedure and conscious sedation was administered per protocol. The left upper pectoral area was prepped and draped in usual sterile fashion. This area was anesthetized using subcutaneous administration of a xylocaine solution. An incision was made at this site and carried down to the prepectoralis fascia using sharp dissection. Electrocautery was also employed for dissection as well as for hemostasis. A device pocket was fashioned tissues above the pectoralis muscle. Subsequent to this maneuver the left axillary vein was accessed using modified Seldinger technique. A sheath was placed over guidewire and used to facilitate passage of a guiding catheter for mapping of the interventricular septum. Once an appropriate location was identified a pacing lead was advanced into the interventricular septum until the appropriate electrophysiologic characteristics were obtained. At this point the guiding catheter was removed. The proximal portion of the lead was then sutured the prepectoralis fascia using nonabsorbable suture. A sheath was placed over the remaining guidewire and used to facilitate passage of a pacing lead to the right atrium under fluoroscopic guidance. Adequate sensing and threshold parameters were obtained prior to active fixation of this lead to the endocardial surface. The proximal portion of the leads were then sutured the prepectoral fascia using nonabsorbable suture. The device pocket was irrigated with antibiotic solution. The leads were then attached to the device. The device and leads were then placed in the pocket and pocket was closed in 3 layers of absorbable suture. Steri-Strips and sterile dressing were applied. The device was tested noninvasively prior to conclusion the procedure. The patient tolerated procedure well there no immediate complications. Equipment used: New pulse generator: [employer]. Model number: [id number] serial number [id number] Right atrial lead: [employer]ator [employer]. Model number: [id number] serial number [id number] Right ventricular lead: [employer] Est[employer]ator [employer]. Model number: 3830 serial number [id number] Measured data: Right atrial lead: P waves measured 3.8 mV. Pacing threshold was 1.75 V at 0.4 ms with a pacing impedance of 627 ohms Right ventricular lead: R waves measured 12.5 mV. Pacing threshold was 1 V at 0.4 ms with a pacing impedance of 722 ohms Impression: Successful implantation of dual-chamber permanent pacemaker with left bundle pacing lead [facility] Electrophysiology codes Pacing Procedure 1: Pacin Insert/Replace Pacer A & V PG Moderate Sedation Codes Moderate Sedation Codes Procedure 1: Sedation/Anesthesia: 09182 Mod Sedation by the same physician;Init15 Min Child Age 5 & Up Procedure 2: Sedation/Anesthesia: 48908 Mod Sedation by the same physician; Ea [id number] Minutes
[2024-07-08] MEDS: ATROPINE SULFATE 0.1 MG/ML 10ML SYR IV ONE (14:01)
--- NOTE | 2024-07-08 14:36 | Cardiology Consultation ---
Date of Consultation July 08, 2024 Assessment & Plan (1) Complete heart block: (2) Left bundle branch block: (3) HTN (hypertension): (4) Stenosis of right carotid artery greater than 50%: (5) Chronic kidney disease: (6) Systolic murmur: Plan 68-year-old man with vascular disease (moderate right carotid stenosis, calcifications incidentally noted on CT) but no prior cardiac symptoms notes episodic lightheadedness for the past few days and found to have complete heart block with negative Lyme titer. Does have a history of pre-existing left bundle branch block, likely has complete heart block is due to progressive conduction system disease and in the absence of any negative chronotropic medications or Lyme disease is unlikely to be reversible. After discussion of risk/benefits, he agreed with proceeding to permanent pacemaker placement by Dr. Hendrix. Given his known vascular disease would continue his vasoactive regimen of amlodipine/chlorthalidone/irbesartan, his lipid-lowering therapy of rosuvastatin, and daily aspirin 81 mg. Hypertension in the ER is likely a physiologic response to profound bradycardia, no need for immediate treatment, reevaluate blood pressure after pacemaker placed. He does have a systolic murmur right upper sternal border, although this may be secondary to his carotid stenosis his aortic closure sound does seem somewhat reduced, will check echocardiogram to exclude mild to moderate aortic stenosis. Further recommendations by Dr. Hendrix post procedure. History of Present Illness Reason for Consultation: Complete heart block Requesting Physician: Reyes Garcia MD Attending Physician: Daquan Olmedo History of Present Illness 68-year-old man with carotid stenosis (SHARMAINE 50-69%), incidentally noted vascular calcifications on abdominal CT, left bundle branch block, and no other cardiac/vascular history noted several days of recurrent dizziness and presyncope, ECG in the ER showed complete heart block with ventricular rate of 35 bpm. Medical history is generally unremarkable, he does have hypertension with a significant "white coat" component, on amlodipine/chlorthalidone/irbesartan his home BPs have been quite favorable (SBP 120 mmHg range). He also has mild chronic kidney disease (baseline creatinine 1.41.7) and is followed by Dr. Mast for this. At recent baseline, using good health with no limitations to daily activities and no cardiopulmonary symptoms. Several days ago he began noting lightheadedness which occurred intermittently, sometimes when standing but also when sitting. He did have a prior history of mild orthostatic lightheadedness on antihypertensive medications, but this is infrequent and had only occurred upon standing up quickly. He denies any chest pain, palpitations, dyspnea, diaphoresis, or syncope. Cardiac data: ECG showed sinus tachycardia with complete heart block and likely junctional escape rhythm (RBBB at 36 bpm). Anterior T wave inversions and inferolateral ST depression noted. No prior ECG for comparison. Second ECG showed sinus rhythm with complete heart block and left bundle branch block at 65 bpm. No prior echocardiogram available. Lyme titer was negative At the time of my evaluation this morning, he had no somatic complaints at bedrest. Allergies Allergy/AdvReac Type Severity Reaction Status Date / Time bee venom protein (honey bee) Allergy Intermediate Hives Unverified 07/08/24 11:07 shellfish derived Allergy Intermediate Facial Unverified 07/08/24 11:07 Swelling cat dander Allergy WATERY EYES Verified 07/08/24 11:07 Home Medications Medication Instructions Recorded Confirmed Type allopurinol 300 mg tablet 300 mg PO DAILY 05/07/19 07/08/24 History amlodipine 2.5 mg tablet 2.5 mg PO DAILY 05/07/19 07/08/24 History irbesartan 300 mg tablet 300 mg PO DAILY 05/07/19 07/08/24 History aspirin 81 mg tablet,delayed 81 mg PO DAILY 08/23/19 07/08/24 History release (Adult Aspirin Regimen) chlorthalidone 25 mg tablet 25 mg PO Q OTHER DAY 08/23/19 07/08/24 History rosuvastatin 20 mg tablet 20 mg PO DAILY 02/19/22 07/08/24 History coenzyme Q10 100 mg capsule 100 mg PO DAILY 11/07/23 07/08/24 History (CoQ-10) multivitamin 1 tab PO DAILY 07/08/24 07/08/24 History Patient History Medical History (Updated 07/08/24 @ 14:36 by Srini Sibley MD) Stenosis of right carotid artery greater than 50% Weight disorder Testicle pain (04/15/23) Testicle pain Snoring Seborrheic keratosis Seasonal allergies Right shoulder pain (03/14/23) Right inguinal hernia (06/25/23) Right inguinal hernia Pulmonary artery hypertension Postural dizziness (04/01/23) Pain in the abdomen (06/25/23) Need for pneumococcal vaccination Medicare annual wellness visit, subsequent LVH (left ventricular hypertrophy) Iritis, secondary infectious Impaired fasting glucose Impacted cerumen of right ear (03/14/23) Hyponatremia Hyperlipidemia (06/25/23) Hyperlipidemia History of shingles History of retinal tear History of prior cigarette smoking History of gout History of COVID-19 (11/16/21) History of adenomatous polyp of colon (12/31/17) Hearing loss Hamstring tightness of both lower extremities Groin pain, chronic, right (05/08/23) Family history of colon cancer Elevated WBC count Elbow pain, right Dizziness (04/15/23) Dizziness Coronary artery calcification Claudication of right lower extremity Carotid artery stenosis BPPV (benign paroxysmal positional vertigo) (05/08/23) Body mass index [BMI] 26.0-26.9, adult (03/14/23) Body mass index [BMI] 26.0-26.9, adult (06/25/23) Body mass index [BMI] 25.0-25.9, adult (04/01/23) Bilateral inguinal hernia Benign paroxysmal vertigo, bilateral Back pain (06/25/23) Age-related hearing loss Abnormal CT of the abdomen (07/18/23) White coat syndrome with diagnosis of hypertension Left bundle branch block Gout Family History Father Kidney disease Hypertension Mother Diabetes Colorectal cancer Social History Smoking Status: Former smoker Age Started Using Tobacco: 15; Age Quit Using Tobacco: 24; Do You Dip or Chew Tobacco: No; Hx Alcohol Use: No Preferred Language: Sudanese Visual Impairment: Limited Hearing Ability: Normal Beliefs That Will Affect Care: None marital status: Current Living Situation: Spouse current occupational status: retired current occupation: Former [employer] How many Children do You have: 4 Feels Safe at Home: Yes Diet: other and regular Diet Comment: intermittent fasting caffeine: Yes (pepsi x 1-2 daily) Dental Care, Regularly: Yes Physical Activity Frequency: 1-2 Times per Week Seatbelt Use: always Sunscreen Use: Yes Do you think of yourself as: straight/heterosexual Gender Identity: Male Assistive Devices: Glasses Physical Exam Physical Exam: Adult white male no distress. Afebrile. BP 209/58 mmHg. Pulse 35 bpm and regular. Respirations 18 and unlabored. Skin: no ecchymoses or generalized lesions. HEENT: unremarkable. Neck: JVP at the clavicle at 90 degrees, right greater than left carotid bruit versus transmitted murmur. Lungs: clear. Cardiac: regular/bradycardic rhythm, mild to moderately diminished aortic closure sound, 2/6 systolic ejection murmur right upper sternal border rating to the right carotid. Abdomen: benign. Extremities: no edema, pulses intact. Neurologic: normal affect and conversation, nonfocal. Results & Data Laboratory Results WBC 13.17, normal hemoglobin and platelet count. Normal electrolytes, BUN 35, creatinine 2.22. Calcium 10.7. Magnesium 2.3. Normal transaminases. Normal TSH. As noted, Lyme titer was negative. BioFire viral PCR was negative for influenza, RSV, and COVID. Diagnostic Findings Chest x-ray unremarkable. PG Care Time/CCT Total # of Minutes Spent Total Time Spent with Patient: Total time spent is greater than 50% in coordination of care (as documented) at patient's floor/unit and/or counseling patient: Coding Level of Care Code 53107 IN/OBS CONSULT LVL 4,60M Diagnoses Complete heart block I44.2 Left bundle branch block I44.7 Primary hypertension I10 Hypertension type: primary hypertension Stenosis of right carotid artery greater than 50% I65.21 Stage 3b chronic kidney disease N18.32 Chronic kidney disease stage: stage 3 (moderate) Chronic kidney disease stage 3 subtype: stage 3b (GFR 30-44) Systolic murmur R01.1 (3) HTN (hypertension) Hypertension type: primary hypertension Qualified Code(s): I10 - Essential (primary) hypertension (5) Chronic kidney disease Chronic kidney disease stage: stage 3 (moderate) Chronic kidney disease stage 3 subtype: stage 3b (GFR 30-44) Qualified Code(s): N18.32 - Chronic kidney disease, stage 3b
--- NOTE | 2024-07-08 14:46 | Electrocardiogram Report ---
Test Reason : Blood Pressure : */* mmHG Vent. Rate : 36 BPM Atrial Rate : 119 BPM P-R Int : * ms QRS Dur : 128 ms QT Int : 528 ms P-R-T Axes : 54 0 69 degrees QTcB Int : 408 ms Sinus tachycardia with complete heart block and Juntional escape Right bundle branch block T-wave inversion in Anterior leads Abnormal ECG No previous ECGs available Confirmed by Srini Sibley ([id number]) on 07/08/2024 2:45:38 PM Referred By: REFERRED SELF Confirmed By: Srini Sibley
--- NOTE | 2024-07-08 16:18 | Electrocardiogram Report ---
Test Reason : Blood Pressure : */* mmHG Vent. Rate : 80 BPM Atrial Rate : 80 BPM P-R Int : 142 ms QRS Dur : 130 ms QT Int : 414 ms P-R-T Axes : 58 -56 79 degrees QTcB Int : 477 ms Poor data quality, interpretation may be adversely affected Atrial-sensed ventricular-paced rhythm Abnormal ECG When compared with ECG of 08-Jul-2024 10:00, Electronic ventricular pacemaker has replaced Sinus rhythm with complete heart block Left bundle branch block no longer present Confirmed by Srini Sibley ([id number]) on 07/08/2024 4:17:56 PM Referred By: REFERRED SELF Confirmed By: Srini Sibley
--- NOTE | 2024-07-08 16:27 | XCELERA ---
[id number]
[2024-07-08] MEDS: ceFAZolin 1000MG 1,000 MG/7.5 ML SYR IV ONE (20:29)
[2024-07-09 06:19] LABS: Hematocrit (blood only) 43.6 % (42.0-52.0); Hemoglobin 14.7 g/dl (14.0-18.0); Mean Corpuscular Hemoglobin 29.3 pg (25.0-34.0); Mean Corpuscular Hgb Conc 33.7 g/dL (32.0-36.0); Mean Platelet Volume 10.6 fL (9.4-12.4); Platelet Count 210 K/uL (130-400); RDW Coefficient of Variation 13.8 % (11.5-14.5); RDW Standard Deviation 43.8 fL (36.4-46.3); Red Blood Count 5.01 M/uL (4.70-6.10); White Blood Count 11.92 K/ul (4.8-10.8)
[2024-07-09 06:37] LABS: BUN Creatinine Ratio 13.7 (10-20); Calcium 9.6 mg/dl (8.6-10.3); Creatinine Clr Calc Pharmacy 29.8 ml/min; Potassium 4.8 mmol/L (3.5-5.1)
[2024-07-09 06:50] LABS: Troponin I High Sensitivity 186.2 pg/ml (0-20)
--- NOTE | 2024-07-09 06:59 | XRay Report ---
EXAM: XR chest 2V PA/lateral CLINICAL HISTORY: EXACT TIME ORDERED Evaluate for pneumothorax and LEAD PLACMENT S/P PACEMAKER INSERTION UNABLE TO RAISE LEFT ARM SDM. TECHNIQUE: An X-ray image of the chest is obtained in AP and lateral projection. COMPARISON: No prior studies are available for comparison. FINDINGS: Pulmonary Parenchyma: Slightly increased bronchovascular markings noted in the lung zhong bilaterally suggest infective bronchitis versus mild congestive changes No pulmonary nodules are identified. No evidence of pleural effusion or pleural thickening. Heart and Mediastinum: Heart size and shape are normal. No mediastinal widening or masses. No hilar or mediastinal lymphadenopathy. Cardiac pacemaker. Unfolded thoracic aorta Bony Thorax: An old healed fracture versus a positional artifact of the distal right clavicle suggested Soft Tissues: Soft tissues overlying the chest wall are unremarkable. IMPRESSION: 1. Slightly increased bronchovascular markings noted in the lung zhong bilaterally may suggest infective bronchitis versus mild congestive changes. 2. Cardiac pacemaker in situ, with leads in optimal position. 3. No pneumothorax detected. Electronically signed by James Pollard 07-09-2024 06:59 AM
[2024-07-09 07:24] VITALS: PULSE 79; RESP 18; O2SAT 95
[2024-07-09] MEDS: allopurinoL 300 MG TAB PO SCH (07:49)
[2024-07-09] MEDS: amLODIPine BESYLATE 5 MG TAB PO SCH (07:49)
[2024-07-09] MEDS: ROSUVASTATIN CALCIUM 20 MG TAB PO SCH (07:49)
[2024-07-09] MEDS ORDERED: NON-FORMULARY MEDICATION (Coenzyme Q10 [Coq-10] 100 mg capsule) PO SCH (09:00)
[2024-07-09 11:01] VITALS: TEMP 97.5
[2024-07-09 11:09] VITALS: BP 150/75
--- NOTE | 2024-07-09 11:19 | Cardiology Progress Note ---
Date of Service July 09, 2024 Assessment & Plan (1) S/P placement of cardiac pacemaker: (2) Complete heart block: (3) HTN (hypertension): (4) Stenosis of right carotid artery greater than 50%: (5) Chronic kidney disease: (6) Elevated troponin: Plan Patient doing well status post dual-chamber pacemaker placement for complete heart block felt secondary to progressive conduction disease (pre-existing left bundle branch block). Minor troponin elevation likely secondary to demand ischemia from extreme bradycardia yesterday, no chest pain or other indication of acute coronary syndrome. Given his known vascular disease (carotid stenosis), continue aspirin, statin, and vasoactive medications for hypertension. Systolic murmur may have been an artifact of altered flow with extreme bradycardia, not noted today and echocardiogram benign. Discussed with patient postprocedure limitations, avoiding lifting with left arm, etc. Okay for discharge, follow-up with Dr. Hendrix in 1 week. . Admission and Anticipated Discharge Date Admission Date: July 08, 2024 Subjective Uneventful night. Feels well. No chest pain, dyspnea, palpitations, or light headedness. Echocardiogram yesterday showed EF 55-60% with no wall motion abnormalities, no significant valvular disease, mild pulmonary hypertension, no pericardial effusion. Telemetry showed atrial sensing ventricular pacing. Physical Exam Physical Exam: No distress. BP 150/75 mmHg. Pulse 80 bpm and regular. Respirations 18 unlabored. Skin: no ecchymoses or generalized lesions. HEENT: unremarkable. Neck: JVP at the clavicle at 90 degrees, right carotid bruit. Lungs: clear. Chest: Left subclavian pacemaker site clean and dry. Cardiac: regular rhythm, no obvious murmur today. Abdomen: benign. Extremities: no edema, pulses intact. Neurologic: normal affect and conversation, nonfocal. Results & Data Vital Signs (Past 12 Hours) Vital Signs Temp Pulse Resp BP BP Pulse Ox O2 Del Method 07/09/24 11:08 97.5 F L 79 18 150/75 H 136/75 95 07/09/24 10:59 97.5 F L 79 18 136/75 95 Room Air 07/09/24 07:22 97.9 F 79 18 151/78 H 95 Room Air 07/09/24 04:35 97.7 F 75 19 150/75 H 96 Room Air 07/08/24 23:43 98.1 F 18 147/74 H 97 Room Air Laboratory Results Normal electrolytes, BUN 31, creatinine 2.26. Troponin values 31, 494, 336, 186. Diagnostic Findings Chest x-ray with no pneumothorax, benign lung zhong to my eye (radiology suggested increased markings). PG Care Time/CCT Total # of Minutes Spent Total Time Spent with Patient: Total time spent is greater than 50% in coordination of care (as documented) at patient's floor/unit and/or counseling patient: Coding Level of Care Code 47892 SUB INP/OBS CARE 2/35MIN Diagnoses S/P placement of cardiac pacemaker Z95.0 Complete heart block I44.2 Primary hypertension I10 Hypertension type: primary hypertension Stenosis of right carotid artery greater than 50% I65.21 Stage 3b chronic kidney disease N18.32 Chronic kidney disease stage: stage 3 (moderate) Chronic kidney disease stage 3 subtype: stage 3b (GFR 30-44) Elevated troponin R79.89 (3) HTN (hypertension) Hypertension type: primary hypertension Qualified Code(s): I10 - Essential (primary) hypertension (5) Chronic kidney disease Chronic kidney disease stage: stage 3 (moderate) Chronic kidney disease stage 3 subtype: stage 3b (GFR 30-44) Qualified Code(s): N18.32 - Chronic kidney disease, stage 3b
--- NOTE | 2024-07-09 16:44 | Discharge Summary ---
Discharge Summary Date of Service July 09, 2024 Principal Dx & Hospital Course #1 = Principal Diagnosis (1) Complete heart block: Patient with a complete heart block and symptomatic bradycardia s/p dual chamber lead placement HR improved discharge instruction provided to patient. Patient will be discharged (2) Renal mass: Renal ultrasound from 07/29/2023 showed 1.9 cm right upper pole renal cyst which corresponds to the lesion on CT of July 09, 2023. This is benign. (3) Chronic kidney disease: renal function appears stable (4) HTN (hypertension): resume home meds Plan Non-ischemic myocardial injury due to dual chamber lead placement Demand ischemia due to bradycardia and hypertensive urgency 68-year-old male who presents in complete heart block. Complete heart block, rate 30s, hypertensive 200s over 80s, Positive serial high-sensitivity troponins 31.0, 404.1, free 36.8, 186.2, Risk Factor(s): Age, bradycardia, hypertensive urgency, pacemaker lead placement Treatment: Emergent dual-chamber pacemaker placement, serial high-sensitivity troponins, IV dopamine drip, Norvasc, Expected increase. now downtrending BASIM on CKD III BUN 30, creatinine 2.22, estimated GFR 31.29, Baseline creatinine approximate 1.8-2 Risk Factor(s): Age, hypertensive urgency, complete heart block with bradycardia in the 30s Treatment: IV Dopamine, emergent dual-chamber pacemaker placement, Norvas Should improve, will recommend repeat at followup Admission HPI Per Admitting Provider 75-year-old male comes into the hospital with symptoms of lightheadedness started on Friday. Patient follows up with Dr. Rivera as an outpatient for his bradycardia. He has been asymptomatic until he has had symptoms this past friday. Patient realized his heart rate was low when he checked his vitals before going to bed. He decided to sleep on it aand not come to the hospital. The next morning as their was no improvement he came to the hospital. Patient came to ED with heart rates in the 30s he was evaluated by cardiology and was recommended a pacemaker. Patient will be admitted directly to the [facility] and then be transferred to PCU. Discharge Exam Constitutional WD/WN, vitals as above Eyes PERRL, conjunctivae normal, anicteric sclerae ENMT external ear and nose normal, oropharynx normal Neck trachea midline, no thyromegaly Respiratory normal respiratory effort, lungs clear to auscultation Cardiovascular Rate/Rhythm: + bradycardic Heart Sounds: normal S1 and normal S2 Gastrointestinal (Abdomen) normal bowel sounds, soft, nontender, no hepatosplenomegaly Musculoskeletal no cyanosis or clubbing, extremities motor strength 5/5 Neurologic PERRL, EOMI, accommodation nl, no face palsy, no dysarthria Psychiatric A+Ox3, euthymic affect Lymphatic no cervical or axillary lymphadenopathy Discharge Plan Discharge Items Patient Disposition: Home - Self-Care Reason For Visit: SYMPTOMATIC BRADYCARDIA Discharge Diagnosis: symptomatic bradycardia Condition on Discharge: Serious Activity: Per Instructions section Non-emergency contact: Primary Care Provider Call non-emergency contact if: you have any medication questions Follow-up/Referrals: Daja Harmon, [Primary Care Provider] - Diet: Heart Healthy Addtl Attending Provider Instructions: No lifting left arm above shoulder for 6 weeks and keep wound dry until cardiology appointment next week ( already requested by posting specialist). Outer bandage can be removed today. Pending Studies at Discharge: No Stand-Alone Forms: [facility] [employer], Smoking Cessation Medications and DC Order Prescriptions: Continued chlorthalidone 25 mg tablet 25 mg PO Q OTHER DAY rosuvastatin 20 mg tablet 20 mg PO DAILY irbesartan 300 mg tablet 300 mg PO DAILY allopurinol 300 mg tablet 300 mg PO DAILY amlodipine 2.5 mg tablet 2.5 mg PO DAILY aspirin [Adult Aspirin Regimen] 81 mg tablet,delayed release (DR/EC) 81 mg PO DAILY coenzyme Q10 [CoQ-10] 100 mg capsule 100 mg PO DAILY multivitamin Tablet 1 tab PO DAILY Discharge Orders: Discharge Order (Routine); Ordered 07/09/24 Ordered By: Daquan Mireles/Other Patient Handouts: Pacemakers Admission Data Admit Date/Time: 07/08/24 10:51 Attending Provider: Daquan Olmedo Admit Provider: Daquan Olmedo Primary Care Provider: Daja Harmon Other Providers: Srini Sibley; Daquan Olmedo Other Interventions: Discharge Summary Assessment (RN) Last Done: 07/09/24 11:08 Hospital Stay Data Consultations 07/08/24 10:26 Consult Cardiology Stat 07/08/24 10:31 ED Decision to Admit Stat Procedures Performed Operation Date: 07/08/24 12:00 Actual Procedures p Pacer with A/V Leads (Dual) - Jace Hendrix MD Diagnostic Imagining Performed 07/08/24 12:00 EP Lab Images for PACS ONCE EP Lab Images for PACS ONCE Pending Results Patient Have Any Pending Studies at Discharge: No Discharge Instructions Given to Patient (Per Discharging Provider) No lifting left arm above shoulder for 6 weeks and keep wound dry until cardiology appointment next week ( already requested by posting specialist). Outer bandage can be removed today. Total Time Total Time Spent Total Time Spent (In Minutes): 32 Coding Level of Care Code 75325 INP/OBS DISCH >30 MIN Diagnoses Complete heart block I44.2 Renal mass N28.89 Stage 3b chronic kidney disease N18.32 Chronic kidney disease stage: stage 3 (moderate) Chronic kidney disease stage 3 subtype: stage 3b (GFR 30-44) Primary hypertension I10 Hypertension type: primary hypertension
--- NOTE | 2024-07-12 10:43 | Electrocardiogram Report ---
Test Reason : Blood Pressure : */* mmHG Vent. Rate : 65 BPM Atrial Rate : * BPM P-R Int : * ms QRS Dur : 146 ms QT Int : 546 ms P-R-T Axes : * 86 -88 degrees QTcB Int : 567 ms Sinus rhythm with complete heart block Left bundle branch block Abnormal ECG When compared with ECG of 08-Jul-2024 09:59, Wide QRS rhythm has replaced Idioventricular rhythm Vent. rate has increased by 29 bpm Confirmed by Óscar Cole ([id number]) on 07/12/2024 10:42:40 AM Referred By: REFERRED SELF Confirmed By: Óscar Cole
== END 2024-07-09 12:17 | disposition home or self-care (01) | DRG 243 ==
LOC: ED 09:46 → 4W 10:51